=== PATIENT | male | born 1990 ===

== ENCOUNTER → 2017-11-23 | Outpatient (CLI) | payer OTHER | END | disposition home or self-care (01) | LOC: TOM 10:22 | DX: R07.81 Pleurodynia (principal) ==

== ENCOUNTER 2017-12-08 12:18 | Outpatient (CLI) | payer OTHER | END 2017-12-08 13:51 | disposition home or self-care (01) | LOC: RAD 12:18 | DX: R07.81 Pleurodynia (principal); M94.0 Chondrocostal junction syndrome [Tietze] ==